=== PATIENT | male | born 1960 | race Caucasian/White ===

== ENCOUNTER → 2017-04-12 09:50 | Outpatient (CLI) | payer MEDICAID | END | disposition home or self-care (01) | LOC: D.RT 09:50 | DX: J44.9 Chronic obstructive pulmonary disease, unspecified (principal) ==

== ENCOUNTER → 2017-06-01 14:39 | Outpatient (CLI) | payer MEDICAID | END | disposition home or self-care (01) | LOC: D.LABREF 14:39 | DX: R07.9 Chest pain, unspecified (principal) ==

== ENCOUNTER → 2017-06-01 15:57 | Outpatient (CLI) | payer MEDICAID | END | disposition home or self-care (01) | LOC: D.LABREF 15:57 | DX: R07.9 Chest pain, unspecified (principal) ==

== ENCOUNTER → 2018-04-08 07:21 | Outpatient (CLI) | payer MEDICAID | END | disposition home or self-care (01) | LOC: D.RT 07:21 | DX: J44.9 Chronic obstructive pulmonary disease, unspecified (principal) ==

== ENCOUNTER → 2019-04-13 09:03 | Outpatient (CLI) | payer MEDICARE ==
[2019-04-13 09:48] LABS: HEMOGLOBIN 17.1 g/dL (13.5-17.5); MCH 32.9 pg (26.0-34.0); MCHC 35.6 g/dL (31.0-37.0); MCV 92.3 fL (80.0-100.0); MEAN PLATELET VOLUME 10.8 fL (7.4-10.4); RDW 12.7 % (11.5-14.5); WBC 7.5 10x3/uL (4.8-10.8)
[2019-04-13 09:49] LABS: PLATELET COUNT 228 10x3/uL (130-400)
[2019-04-13 10:08] LABS: EOSINOPHILS 3 % (0-7); LYMPHOCYTES 33 % (15-50); MONOCYTES 10 % (2-11); NEUTROPHILS 54 % (40-80); PLATELET ESTIMATE NORMAL
== END | disposition home or self-care (01) ==
LOC: D.RAD 09:03 → D.RT 11:00
PROVIDERS: ATTEND Internal Medicine Pulmonary Disease
DX: J44.9 Chronic obstructive pulmonary disease, unspecified (principal)